=== PATIENT | female | born 1980 | race Two or more races ===

== ENCOUNTER 2021-01-15 10:51 | Emergency (ER) | payer SELFPAY ==
[~2021-01-15] VITALS: Ht 157.5 cm; Wt 63.0 kg
[2021-01-15] MEDS ORDERED: ALBU18HF2 IH (10:59)
[2021-01-15] MEDS ORDERED: IBUPROFEN 600MG TABLET PO STA (11:34)
[2021-01-15] MEDS ORDERED: BACITRACIN ZINC OINT UDPKT TOP ONE (11:45)
[2021-01-15] MEDS ORDERED: ACETAMINOPHEN WITH CODEINE 300/30MG TABLET PO STA (12:59)
[2021-01-15] MEDS ORDERED: NAPR-681 PO (13:28)
[2021-01-15] MEDS ORDERED: CEPH500C2 MT (13:28)
[2021-01-15] MEDS ORDERED: SULF1TAB48 PO (13:28)
[2021-01-15 13:56] VITALS: BP 124/83
== END 2021-01-15 13:57 | disposition home or self-care (01) ==
LOC: ER 11:16
DX: L03.012 Cellulitis of left finger (principal)
CPT/HCPCS: 73140; 99284